=== PATIENT | female | born 1990 | race Caucasian/White ===

== ENCOUNTER 2023-10-20 19:20 | Emergency (ER) | payer BC ==
[2023-10-20 19:32] VITALS: BP 115/87; PULSE 72; RESP 18; TEMP 98.2; BMI 23.6
== END 2023-10-20 20:29 | disposition home or self-care (01) ==
LOC: FER 19:20
DX: S93.401A Sprain of unspecified ligament of right ankle, initial encounter (principal); W19.XXXA Unspecified fall, initial encounter; X50.1XXA Overexertion from prolonged static or awkward postures, initial encounter; Y93.01 Activity, walking, marching and hiking
CPT/HCPCS: 73610-TC-RT-FY; 73630-TC-RT-FY; 99283-25